=== PATIENT | female | born 1940 | race African-American/Black ===

== ENCOUNTER 2022-03-29 17:48 | Emergency (ER) | payer MEDICARE, BC ==
[~2022-03-29] VITALS: Ht 165.1 cm; Wt 57.0 kg
[2022-03-29 18:57] LABS: BASOPHILS % 0.4 % (0.0-2.0); EOSINOPHILS % 0.4 % (0.0-5.0); HEMOGLOBIN. 11.7 g/dL (12.0-16.0); LYMPHOCYTES % 13.1 % (20.0-50.0); MEAN CORPUSCULAR HEMOGLOBIN 30.6 pg (28.0-32.0); MEAN CORPUSCULAR VOLUME 91.4 fL (81.0-99.0); MEAN PLATELET VOLUME 10.3 fl (7.4-10.4); MONOCYTES % 8.2 % (2.0-8.0); NEUTROPHILS % 77.9 % (40.0-76.0); PLATELET 215 x1000/uL (130-400); RED BLOOD CELL COUNT 3.83 mill/uL (4.2-5.4); RED CELL DISTRIBUTION WIDTH 14.8 % (11.6-14.6)
[2022-03-29] MEDS ORDERED: DILTIAZEM HCL 5MG/ML 5ML VIAL IV ONE (19:00)
[2022-03-29 19:09] LABS: CHLORIDE 95 mEq/L (98-107)
[2022-03-29 19:19] LABS: ETHANOL BLOOD < 10 mg/dL
[2022-03-29 19:51] VITALS: BP 182/129
[2022-03-29] MEDS ORDERED: FUROSEMIDE 20MG/2ML VIAL IVP ONE (20:45)
[2022-03-29] MEDS ORDERED: DOCUSATE SODIUM 100MG CAPSULE PO PRN (21:45)
[2022-03-29] MEDS ORDERED: IPRATROPIUM/ALBUTEROL 0.5-3(2.5)MG/3ML NEB NEB PRN (21:45)
[2022-03-29] MEDS ORDERED: NITROGLYCERIN 0.4MG TABLET SL SL PRN (21:45)
[2022-03-29] MEDS ORDERED: ZOLPIDEM TARTRATE 5MG TABLET PO PRN (21:45)
[2022-03-29] MEDS ORDERED: ONDANSETRON HCL 4MG/2ML INJ IV PRN (21:45)
[2022-03-29] MEDS ORDERED: MAGNESIUM/ALUMINUM HYDROXIDE/SIMETHICONE 30ML UDC PO PRN (21:45)
[2022-03-29] MEDS ORDERED: GUAIFENESIN 200MG/10ML SUGAR FREE UDC PO PRN (21:45)
[2022-03-29] MEDS ORDERED: CLONIDINE 0.1MG TABLET PO PRN (21:45)
[2022-03-29] MEDS ORDERED: LOSARTAN POTASSIUM 50 MG TABLET PO SCH (21:45)
[2022-03-29] MEDS ORDERED: TRAMADOL 50MG TABLET PO PRN (21:45)
[2022-03-29] MEDS ORDERED: ACETAMINOPHEN 325MG TABLET PO PRN ×2 (21:45)
[2022-03-29] MEDS ORDERED: METOPROLOL TARTRATE 50MG TABLET PO SCH (22:15)
[2022-03-29] MEDS ORDERED: NALOXONE HCL 0.4MG/ML VIAL IV PRN (22:15)
[2022-03-29 23:07] LABS: T4 FREE 1.12 ng/dL (0.76-1.46)
[2022-03-29 23:15] LABS: FOLIC ACID (FOLATE) SERUM 18.3 ng/mL (>5.38)
[2022-03-30] MEDS ORDERED: APIXABAN 2.5 MG TABLET PO SCH (06:00)
[2022-03-30] MEDS ORDERED: FAMOTIDINE 20MG TABLET PO SCH (09:00)
[2022-03-30] MEDS ORDERED: SPIRONOLACTONE 25MG TABLET PO SCH (09:00)
[2022-03-30] MEDS ORDERED: ASPIRIN 325MG EC TABLET PO SCH (09:00)
[2022-03-30] MEDS ORDERED: FUROSEMIDE 40MG/4ML VIAL IVP SCH (09:00)
== END 2022-03-29 22:15 | disposition left against medical advice (07) ==
LOC: ER 17:48 → EDBEDREQTM 19:04 → EDBEDREQ 21:19 → EDBEDREQTM 21:19 → SUPCPDRO 21:37 → ENRESERV 21:53 → ER 22:15 → CMPBEDREQ 03-31 21:56
DX: I11.0 Hypertensive heart disease with heart failure (principal); I50.43 Acute on chronic combined systolic (congestive) and diastolic (congestive) heart failure; R00.2 Palpitations; R00.0 Tachycardia, unspecified; I48.91 Unspecified atrial fibrillation; Z79.01 Long term (current) use of anticoagulants; Z98.890 Other specified postprocedural states
CPT/HCPCS: 36415; 71045; 73080; 80053; 80061; 80320; 82607; 82746; 83036; 83540; 83550; 83690; 83880; 84439; 84443; 84484; 85025; 93005; 96374; 99291; J3490; G0480